=== PATIENT | male | born 1975 | race Caucasian/White ===

== ENCOUNTER 2019-03-04 17:30 | Emergency (ER) | payer OTHER ==
[~2019-03-04] VITALS: Ht 170.2 cm; Wt 72.6 kg
[2019-03-04] MEDS ORDERED: Naproxen 500mg tab ORAL ONE (17:45)
--- NOTE | 2019-03-04 17:57 | NUR ---
ED Nurse Note: Patient presents to ER due to left knee injury. Patient fell from [facility] and landed on left knee. Swollen left knee noted. Patient unable to straighten LLE at this time. Skin abrasions on bilateral knees without bleeding noted. Transferred patient to room in wheelchair. Applied ice pack.
--- NOTE | 2019-03-04 18:29 | Diagnostic Imaging Report ---
EXAM: XR Left Knee, 3 views CLINICAL HISTORY: TRAUMA TECHNIQUE: Three views of the left knee. COMPARISON: none FINDINGS: Bones/joints: 4 views of the left knee show an acute medial and lateral tibial plateau fracture with mild posterior displacement of the major proximal fracture fragment. Distal femur is intact. Proximal fibula appears intact. Moderate joint effusion. No dislocation. Soft tissues: Unremarkable. IMPRESSION: Acute comminuted left proximal tibial fracture with intra-articular extension, involving both medial and lateral tibial plateaus.
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
[2019-03-04] MEDS ORDERED: IBUPROFEN800 M1 PO (18:34)
[2019-03-04] MEDS ORDERED: NORCO 5-325 TA1 EACH ORAL (18:34)
[2019-03-04 19:12] VITALS: BP 121/75
--- NOTE | 2019-03-04 19:22 | NUR ---
ED Nurse Note: John BETH applied knee immobilizer. Provided crutches. Given D/C insturction on how to use cruches and patient demonstrated proper use of crutches. Patient is being discharged from medical care. Awake, alert and oriented x4. After care instructions, including prescriptions were given. Patient verbalized understanding of After care instructions. ID band were removed. Patient waiting for friend in a room. Addendum: 03/04/19 at 1937 by SEBASTIÁN written instruction on how to use crutches given.
[2019-03-04] MEDS ORDERED: HYDROcodone/Acetamin 5/325 tab ORAL ONE (19:30)
== END 2019-03-04 19:30 | disposition home or self-care (01) ==
LOC: EMR 19:15
DX: S82.102B Unspecified fracture of upper end of left tibia, initial encounter for open fracture type I or II (principal); W05.1XXA Fall from non-moving nonmotorized scooter, initial encounter; Y92.9 Unspecified place or not applicable
CPT/HCPCS: 29505; 99283